=== PATIENT | female | born 1980 | race Caucasian/White ===

== ENCOUNTER 2016-09-15 21:05 | Emergency (ER) | payer OTHER ==
[2016-09-15 22:17] LABS: BASOPHIL 0.2 % (0-2); EOSINOPHIL 0.9 % (0-5); HCT 36.3 % (37.0-47.0); HGB 12.6 g/dl (12.5-16.0); LYMPHOCYTE 15.8 % (15-48); MCH 32.8 pg (25.0-31.0); MCHC 34.7 g/dL (32.0-36.0); MCV 94.5 fL (78.0-100.0); MONOCYTE 5.8 % (0-12); MPV 10.4 fL (6.0-9.5); NEUTROPHIL 77.3 % (41-80); PLT 208 K/uL (150-400); RBC 3.84 M/uL (4.20-5.40); RDW 12.5 % (11.5-14.0); WBC 19.1 K/uL (4.0-10.5)
[2016-09-15 22:39] LABS: BILIRUBIN - TOTAL 0.2 mg/dL (0.1-1.0); CREATININE 0.8 mg/dL (0.5-1.0); GLOBULIN (CALCULATION) 2.4 g/dL (2.2-4.2); POTASSIUM 3.8 mmol/L (3.5-5.1); TOTAL PROTEIN 6.4 g/dL (6.4-8.3)
== END 2016-09-16 02:55 | disposition home or self-care (01) ==
LOC: FER 21:05
PROVIDERS: Emergency Medicine Emergency Medical Services
DX: S09.90XA Unspecified injury of head, initial encounter (principal); S01.81XA Laceration without foreign body of other part of head, initial encounter; S81.012A Laceration without foreign body, left knee, initial encounter; S41.111A Laceration without foreign body of right upper arm, initial encounter; F17.210 Nicotine dependence, cigarettes, uncomplicated; Z23 Encounter for immunization; V49.40XA Driver injured in collision with unspecified motor vehicles in traffic accident, initial encounter; Y92.410 Unspecified street and highway as the place of occurrence of the external cause
CPT/HCPCS: 36415; 70450; 71020; 71260; 72125; 72170; 72220; 73060; 73130; 73552; 73590; 80053; 82150; 83605; 83690; 85025; 90471; 90715; J1885; J2270; J2405; Q9967